=== PATIENT | female | born 1935 | race Caucasian/White ===

== ENCOUNTER → 2017-04-28 | Outpatient (CLI) | payer OTHER | END | disposition home or self-care (01) | DX: M17.11 Unilateral primary osteoarthritis, right knee (principal); R26.2 Difficulty in walking, not elsewhere classified; M25.561 Pain in right knee; M25.661 Stiffness of right knee, not elsewhere classified; M62.81 Muscle weakness (generalized); Z74.1 Need for assistance with personal care | CPT/HCPCS: 97110 GP; 97150 GO; 97161 GP; 97165 GO; G8981 GP; G8982 GP; G8983 GP; G8987 GO; G8988 GO; G8989 GO ==

== ENCOUNTER 2017-05-18 21:26 | Inpatient (IN) | payer OTHER ==
[~2017-05-18] VITALS: Ht 149.9 cm; Wt 77.6 kg
[~2017-05-18 21:26] MED LIST: COREG25 M1 PO; FISH OIL 1,0001 EAC7 PO; HYDROCHLOROTHIA25 MG PO; KLOR-CON M2020 MEQ PO; LIPITOR80 MG PO; LORAZEPAM0.5 MG PO; NORVASC5 MG PO; PERCOCET 5/31 TABLET PO; PRESERVISION T1 EACH PO; SYNTHROID75 MCG PO
[2017-05-19 12:11] VITALS: BP 140/67
[2017-05-19 16:40] LABS: HEMATOCRIT 38.4 % (36.0-46.0); MCH 28.5 PG (29.0-34.0); MCV 88.9 FL (83-99); PLATELET COUNT 263 K/uL (156-360); RBC DIS.WIDTH-CV 12.9 % (11.8-14.6); RBC DIS.WIDTH-SD 42.1 % (39-53); RED BLOOD COUNT 4.32 M/uL (3.80-5.20); WHITE BLOOD COUNT 10.8 K/uL (4.1-10.2)
[2017-05-19 19:32] VITALS: BP 151/87
[2017-05-20 04:15] VITALS: BP 145/80
[2017-05-20 04:54] LABS: MCV 88.2 FL (83-99)
[2017-05-20 05:04] LABS: CHLORIDE 101 mEq/L (99-109); POTASSIUM 3.7 mEq/L (3.7-5.4)
[2017-05-20 05:05] LABS: SODIUM 138 mEq/L (136-147)
[2017-05-20 05:06] LABS: GLUCOSE 134 mg/dL (70-99)
[2017-05-20 05:08] LABS: ANION GAP 13 MEQ/L (2-14)
[2017-05-20 05:10] LABS: GFR ESTIMATE (CALCULATED) > 59 mL/min/
[2017-05-20 05:11] LABS: UREA NITROGEN (BUN) 23 mg/dL (9-23)
[2017-05-20 08:27] VITALS: BP 133/60
[2017-05-20 11:47] VITALS: BP 145/64
[2017-05-20] MEDS ORDERED: LOVENOX40 MG/0.4 SC (12:37)
[2017-05-20] MEDS ORDERED: ENDOCET 5-3251 EACH PO (12:37)
[2017-05-20 16:23] VITALS: BP 147/67
[2017-05-20 20:12] VITALS: BP 158/70
[2017-05-21 00:20] VITALS: BP 169/79
[2017-05-21 04:14] VITALS: BP 140/88
[2017-05-21 04:55] LABS: HEMATOCRIT 35.1 % (36.0-46.0); MCV 86.9 FL (83-99)
[2017-05-21 08:00] VITALS: BP 152/80
[2017-05-21 12:08] VITALS: BP 108/71
[2017-05-21 18:10] VITALS: BP 182/82
[2017-05-21 20:19] VITALS: BP 161/68
[2017-05-22 00:33] VITALS: BP 152/71
[2017-05-22 03:24] VITALS: BP 147/78
[2017-05-22 07:42] VITALS: BP 161/77
== END 2017-05-22 10:40 | DRG 470 ==
LOC: CANRESERV 21:26 → ENRESERV 21:26 → 3WEST 05-19 10:59 → 2SOUTH 05-19 10:59 → 3WEST 05-19 19:03 → ENRESERV 05-21 13:50 → 3EAST 05-21 17:33
PROVIDERS: Orthopaedic Surgery
PROC: 0SRC0J9 Replacement of Right Knee Joint with Synthetic Substitute, Cemented, Open Approach (ICD-10-PCS; principal; 2017-05-19)
DX: M17.11 Unilateral primary osteoarthritis, right knee (principal); B37.0 Candidal stomatitis; I10 Essential (primary) hypertension; R73.03 Prediabetes; E78.5 Hyperlipidemia, unspecified; E03.9 Hypothyroidism, unspecified; F41.9 Anxiety disorder, unspecified; E66.9 Obesity, unspecified; Z68.34 Body mass index [BMI] 34.0-34.9, adult; Z87.891 Personal history of nicotine dependence
CPT/HCPCS: 71010; 73560; 80048; 85014; 85018; 85027; C1713; J0131; J0690; J1100; J1170; J1650; J2250; J2405; J3010; J7050

== ENCOUNTER 2017-11-16 21:46 | Inpatient (IN) | payer OTHER ==
[~2017-11-16] VITALS: Ht 149.9 cm; Wt 87.8 kg
[~2017-11-16 21:46] MED LIST changes: +ENDOCET 5-3251 EACH PO; +LOVENOX40 MG/0.4 SC
[2017-11-17 12:32] VITALS: BP 173/95
[2017-11-17 17:14] LABS: HEMATOCRIT 35.8 % (36.0-46.0); HEMOGLOBIN 11.7 G/DL (11.9-15.5); MCH 28.7 PG (29.0-34.0); MCHC 32.7 G/DL (30.0-36.0); MCV 87.7 FL (83-99); PLATELET COUNT 234 K/uL (156-360); RBC DIS.WIDTH-CV 13.8 % (11.8-14.6); RBC DIS.WIDTH-SD 44.3 % (39-53); RED BLOOD COUNT 4.08 M/uL (3.80-5.20); WHITE BLOOD COUNT 7.8 K/uL (4.1-10.2)
[2017-11-17 23:42] VITALS: BP 134/86
[2017-11-17 23:45] VITALS: BP 134/86
[2017-11-18 03:11] VITALS: BP 111/62
[2017-11-18 05:31] LABS: HEMATOCRIT 34.2 % (36.0-46.0); MCV 88.1 FL (83-99)
[2017-11-18 06:03] LABS: CHLORIDE 98 MEQ/L (99-109); CREATININE 0.6 MG/DL (0.6-1.3); GFR ESTIMATE (CALCULATED) > 59 mL/min/; GLUCOSE 145 mg/dL (70-99); POTASSIUM 3.7 MEQ/L (3.7-5.4); SODIUM 135 MEQ/L (136-147); UREA NITROGEN (BUN) 10 mg/dL (9-23)
[2017-11-18 08:38] VITALS: BP 118/57
[2017-11-18 12:00] VITALS: BP 136/69
[2017-11-18 16:16] VITALS: BP 154/71
[2017-11-18 21:03] VITALS: BP 119/60
[2017-11-18 23:08] VITALS: BP 110/73
[2017-11-19 05:27] LABS: HEMATOCRIT 31.5 % (36.0-46.0); HEMOGLOBIN 10.1 G/DL (11.9-15.5); MCV 86.3 FL (83-99)
[2017-11-19 08:05] VITALS: BP 134/61
[2017-11-19 17:00] VITALS: BP 132/63
[2017-11-19 23:47] VITALS: BP 120/59
[2017-11-20 04:44] VITALS: BP 129/66
[2017-11-20 07:47] VITALS: BP 133/77
[2017-11-20] MEDS ORDERED: LOVENOX40 MG/0.4 SC (08:17)
[2017-11-20] MEDS ORDERED: ENDOCET 5-3251 EACH PO (08:17)
[2017-11-20 13:11] VITALS: BP 117/64
== END 2017-11-20 13:27 | DRG 470 ==
LOC: ENRESERV 21:46 → 2SOUTH 11-17 11:01 → 3EAST 11-17 11:52 → 2SOUTH 11-17 17:54 → ENRESERV 11-17 18:14 → 3EAST 11-17 22:50
PROVIDERS: Orthopaedic Surgery
PROC: 0SRD0J9 Replacement of Left Knee Joint with Synthetic Substitute, Cemented, Open Approach (ICD-10-PCS; principal; 2017-11-17)
DX: M17.12 Unilateral primary osteoarthritis, left knee (principal); I10 Essential (primary) hypertension; E03.9 Hypothyroidism, unspecified; Z68.39 Body mass index [BMI] 39.0-39.9, adult; E66.9 Obesity, unspecified; E78.00 Pure hypercholesterolemia, unspecified; L82.1 Other seborrheic keratosis; Z96.651 Presence of right artificial knee joint; Z87.891 Personal history of nicotine dependence; Z88.2 Allergy status to sulfonamides
CPT/HCPCS: 71045; 73560; 80048; 85014; 85018; 85027; 94799; 97530 GP; C1713; J0131; J0690; J1170; J1650; J2405; J2795; J3010; J7050

== ENCOUNTER 2018-03-22 10:58 | Inpatient (IN) | payer OTHER ==
[2018-03-22] VITALS (10 sets, daily range): BP systolic 93–116; BP diastolic 45–64
[~2018-03-22] VITALS: Ht 149.9 cm; Wt 75.3 kg
[2018-03-22 11:16] LABS: BASOPHIL (%) 0.1 % (0-1); EOSINOPHIL (%) 1.8 % (0-5); EOSINOPHIL COUNT 0.2 K/uL (0-0.3); HEMATOCRIT 36.9 % (36.0-46.0); HEMOGLOBIN 12.2 G/DL (11.9-15.5); IMMATURE GRANULOCYTE (%) 0.4 % (0.0-0.7); LYMPHOCYTE (%) 19.9 % (15-42); LYMPHOCYTE COUNT 1.9 K/uL (1.0-2.8); MCH 28.1 PG (29.0-34.0); MCHC 33.1 G/DL (30.0-36.0); MONOCYTE (%) 11.5 % (3-12); MONOCYTE COUNT 1.1 K/uL (0-0.8); NEUTROPHIL (%) 66.3 % (45-76); NEUTROPHIL COUNT 6.2 K/uL (1.8-6.4); PLATELET COUNT 269 K/uL (156-360); RBC DIS.WIDTH-CV 13.5 % (11.8-14.6); RBC DIS.WIDTH-SD 42.2 % (39-53); RED BLOOD COUNT 4.34 M/uL (3.80-5.20); WHITE BLOOD COUNT 9.4 K/uL (4.1-10.2)
[2018-03-22 11:25] LABS: AMYLASE 34 IU/L (1-118); PTT 20.2 SEC (25-37)
[2018-03-22 11:26] LABS: CHLORIDE 100 mEq/L (99-109); SODIUM 137 mEq/L (136-147)
[2018-03-22 11:27] LABS: GLUCOSE 132 mg/dL (70-99)
[2018-03-22 11:30] LABS: SERUM ETHYL ALCOHOL < 10 mg/dL
[2018-03-22 11:31] LABS: CREATININE 0.7 mg/dL (0.6-1.3); GFR ESTIMATE (CALCULATED) > 59 mL/min/
[2018-03-22 11:32] LABS: UREA NITROGEN (BUN) 13 mg/dL (9-23)
[2018-03-22 11:34] LABS: LIPASE 9 U/L (1.0-51.0)
[2018-03-22 11:37] LABS: TROP-I INTERPRETATION INDETERMINATE; TROPONIN-I 0.49 ng/mL (0.0-0.30)
[2018-03-22 18:27] LABS: TROP-I INTERPRETATION POSITIVE; TROPONIN-I 11.78 ng/mL (0.0-0.30)
[2018-03-22 18:28] LABS: CK-MB 131.7 ng/mL (0.0-4.9)
[2018-03-22 18:40] LABS: CKMB RELATIVE INDEX 16.6 (0.0-3.9); CREATINE KINASE 794 IU/L (1-294); TOTAL CK 794 IU/L (1-294)
[2018-03-22 20:04] LABS: BASOPHIL (%) 0.1 % (0-1); EOSINOPHIL (%) 1.5 % (0-5); EOSINOPHIL COUNT 0.1 K/uL (0-0.3); HEMATOCRIT 31.9 % (36.0-46.0); HEMOGLOBIN 10.4 G/DL (11.9-15.5); IMMATURE GRANULOCYTE (%) 0.4 % (0.0-0.7); LYMPHOCYTE (%) 17.1 % (15-42); LYMPHOCYTE COUNT 1.6 K/uL (1.0-2.8); MCH 27.5 PG (29.0-34.0); MCHC 32.6 G/DL (30.0-36.0); MCV 84.4 FL (83-99); MONOCYTE (%) 11.8 % (3-12); MONOCYTE COUNT 1.1 K/uL (0-0.8); NEUTROPHIL (%) 69.1 % (45-76); NEUTROPHIL COUNT 6.4 K/uL (1.8-6.4); PLATELET COUNT 253 K/uL (156-360); RBC DIS.WIDTH-CV 13.6 % (11.8-14.6); RED BLOOD COUNT 3.78 M/uL (3.80-5.20); WHITE BLOOD COUNT 9.2 K/uL (4.1-10.2)
[2018-03-23] VITALS (15 sets, daily range): BP systolic 89–133; BP diastolic 52–91
[2018-03-23 01:05] LABS: TOTAL CK 1468 IU/L (1-294)
[2018-03-23 01:07] LABS: TROP-I INTERPRETATION POSITIVE
[2018-03-23 01:12] LABS: CK-MB 135.2 ng/mL (0.0-4.9); CKMB RELATIVE INDEX 9.2 (0.0-3.9)
[2018-03-23 01:15] LABS: CREATINE KINASE 1468 IU/L (1-294)
[2018-03-23 01:18] LABS: TROPONIN-I 24.86 ng/mL (0.0-0.30)
[2018-03-23 05:44] LABS: BASOPHIL (%) 0.2 % (0-1); EOSINOPHIL (%) 2.1 % (0-5); EOSINOPHIL COUNT 0.2 K/uL (0-0.3); HEMATOCRIT 30.7 % (36.0-46.0); HEMOGLOBIN 9.8 G/DL (11.9-15.5); IMMATURE GRANULOCYTE (%) 0.4 % (0.0-0.7); LYMPHOCYTE (%) 18.6 % (15-42); LYMPHOCYTE COUNT 1.7 K/uL (1.0-2.8); MCH 27.5 PG (29.0-34.0); MCHC 31.9 G/DL (30.0-36.0); MCV 86.2 FL (83-99); MONOCYTE (%) 14.6 % (3-12); MONOCYTE COUNT 1.3 K/uL (0-0.8); NEUTROPHIL (%) 64.1 % (45-76); NEUTROPHIL COUNT 5.9 K/uL (1.8-6.4); PLATELET COUNT 227 K/uL (156-360); RBC DIS.WIDTH-CV 13.8 % (11.8-14.6); RBC DIS.WIDTH-SD 43.2 % (39-53); RED BLOOD COUNT 3.56 M/uL (3.80-5.20); WHITE BLOOD COUNT 9.2 K/uL (4.1-10.2)
[2018-03-23 06:10] LABS: TROP-I INTERPRETATION POSITIVE; TROPONIN-I 29.12 ng/mL (0.0-0.30)
[2018-03-23 06:39] LABS: CHLORIDE 99 MEQ/L (99-109); CREATININE 0.6 MG/DL (0.6-1.3); GFR ESTIMATE (CALCULATED) > 59 mL/min/; GLUCOSE 109 mg/dL (70-99); HDL CHOLESTEROL 35 MG/DL (Desirable>=50); LDL CHOLESTEROL 39 mg/dL (Desirable<100); NON-HDL CHOLESTEROL 75 mg/dL (Desirable<160); POTASSIUM 3.7 MEQ/L (3.7-5.4); SODIUM 137 MEQ/L (136-147); TOTAL CHOLESTEROL 110 mg/dL (Desirable<200); TOTAL CK 1252 IU/L (1-294); TRIGLYCERIDES 182 MG/DL (Normal: <150); UREA NITROGEN (BUN) 11 mg/dL (9-23)
[2018-03-23 06:41] LABS: CREATINE KINASE 1252 IU/L (1-294)
[2018-03-23 07:25] LABS: CK-MB 134.8 ng/mL (0.0-4.9); CKMB RELATIVE INDEX 10.8 (0.0-3.9)
[2018-03-23 10:14] LABS: HEMOGLOBIN A1c (GLYCOHEMOGLOB) 5.9 % (Below 5.7)
[2018-03-24 03:25] VITALS: BP 103/59
[2018-03-24 07:15] VITALS: BP 135/69
[2018-03-24 07:36] LABS: CHLORIDE 102 MEQ/L (99-109); CREATININE 0.6 MG/DL (0.6-1.3); GFR ESTIMATE (CALCULATED) > 59 mL/min/; GLUCOSE 102 mg/dL (70-99); POTASSIUM 3.5 MEQ/L (3.7-5.4); SODIUM 140 MEQ/L (136-147); UREA NITROGEN (BUN) 12 mg/dL (9-23)
[2018-03-24] MEDS ORDERED: BRILINTA90 MG PO (10:44)
[2018-03-24] MEDS ORDERED: NITROSTAT0.4 MG SL (10:45)
[2018-03-24] MEDS ORDERED: LISINOPRIL2.5 MG PO (10:45)
[2018-03-24] MEDS ORDERED: ASPIR 8181 M1 PO (10:47)
[2018-03-24 11:08] VITALS: BP 123/65
== END 2018-03-24 15:38 | disposition home or self-care (01) | DRG 247 ==
LOC: EME 10:58 → ENRESERV 11:06 → EME 12:01 → 4WEST 12:01 → CATH 12:01 → 4EAST 14:05 → 2SOUTH 14:05 → 4WEST 14:19 → ENRESERV 03-23 08:54 → 4EAST 03-23 10:20
PROVIDERS: Emergency Medicine; Internal Medicine Cardiovascular Disease
PROC: 3E083KZ Introduction of Other Diagnostic Substance into Heart, Percutaneous Approach (ICD-10-PCS; principal; 2018-03-22)
PROC: 027035Z Dilation of Coronary Artery, One Artery with Two Drug-eluting Intraluminal Devices, Percutaneous Approach (ICD-10-PCS; principal; 2018-03-22)
PROC: B2111ZZ Fluoroscopy of Multiple Coronary Arteries using Low Osmolar Contrast (ICD-10-PCS; principal; 2018-03-22)
PROC: B2151ZZ Fluoroscopy of Left Heart using Low Osmolar Contrast (ICD-10-PCS; principal; 2018-03-22)
PROC: 4A023N7 Measurement of Cardiac Sampling and Pressure, Left Heart, Percutaneous Approach (ICD-10-PCS; principal; 2018-03-22)
DX: I21.19 ST elevation (STEMI) myocardial infarction involving other coronary artery of inferior wall (principal); I25.10 Atherosclerotic heart disease of native coronary artery without angina pectoris; I10 Essential (primary) hypertension; E11.9 Type 2 diabetes mellitus without complications; E78.5 Hyperlipidemia, unspecified; E66.9 Obesity, unspecified; Z68.33 Body mass index [BMI] 33.0-33.9, adult; M19.90 Unspecified osteoarthritis, unspecified site
CPT/HCPCS: 80048; 80061; 81003; 82150; 82550; 82550 91; 82553; 82948; 83036; 83690; 84484; 85025; 85025 91; 85347; 85610; 85730; 86850; 86900; 86901; 87641; 93005; 93306; 94799; 99281; 99285; C1725; C1769; C1874; C1887; C1894; G0480; J1644; J1815; J2250; J2405; J3010; J3246